=== PATIENT | female | born 1955 | race Caucasian/White ===

== ENCOUNTER 2017-09-20 20:26 | Emergency (ER) | payer BC ==
[2017-09-20 20:54] VITALS: RESP 18; TEMP 97.7; O2SAT 98
[2017-09-20 21:02] LABS: BASOPHILS % (AUTO) 1 % (0-3); EOSINOPHILS % (AUTO) 1 % (0-9); HEMATOCRIT 38 % (35-47); MEAN CORPUSCULAR HGB CONC 33.2 gm/dl (32.0-36.0); MEAN CORPUSCULAR VOLUME 88 fL (81-99); MONOCYTES % (AUTO) 7.1 % (0-12); NEUTROPHILS % (AUTO) 69.7 % (37-80)
[2017-09-20] MEDS: HYDROMORPHONE HCL 2 MG/ML SOL IM ONE (21:09)
[2017-09-20] MEDS: ONDANSETRON 4 MG ODT BU ONE (21:09)
[2017-09-20] MEDS ORDERED: ONDANSETRON 4 MG ODT ONE (21:11)
[2017-09-20] MEDS ORDERED: HYDROMORPHONE HCL 2 MG/ML SOL ONE (21:12)
[2017-09-20 21:14] LABS: ALBUMIN 3.4 gm/dl (3.4-5.0); CALCIUM 8.8 mg/dl (8.5-10.1)
[2017-09-20] MEDS: METRONIDAZOLE 250 MG TAB PO ONE (21:32)
[2017-09-20] MEDS: APAP/HYDROCODONE 325/5 TAB PO ONE (21:36)
[2017-09-20] MEDS ORDERED: APAP/HYDROCODONE 325/5 TAB ONE (21:38)
[2017-09-20] MEDS ORDERED: METRONIDAZOLE 250 MG TAB ONE (21:39)
[2017-09-20 22:27] VITALS: BP 151/92; PULSE 80
== END 2017-09-20 22:22 | disposition home or self-care (01) ==
LOC: ED 20:26
DX: K92.1 Melena (principal); R10.9 Unspecified abdominal pain; Z87.19 Personal history of other diseases of the digestive system
CPT/HCPCS: 36415; 80053; 85025; 96372; 99283; 99284; J1170